=== PATIENT | male | born 1980 | race Caucasian/White ===

== ENCOUNTER 2018-08-15 09:56 | Emergency (ER) | payer OTHER ==
[~2018-08-15] VITALS: Ht 170.2 cm; Wt 102.1 kg
[2018-08-15] MEDS ORDERED: LOSARTAN POTAS100 MG (10:06)
[2018-08-15] MEDS ORDERED: LIPITOR20 MG (10:06)
[2018-08-15] MEDS ORDERED: NORVASC5 MG (10:07)
== END 2018-08-15 16:05 | disposition home or self-care (01) ==
LOC: ER 09:56
DX: L03.115 Cellulitis of right lower limb (principal)

== ENCOUNTER 2020-08-07 12:50 | Emergency (ER) | payer OTHER ==
[~2020-08-07] VITALS: Ht 170.2 cm; Wt 102.1 kg
[~2020-08-07 12:50] MED LIST: LIPITOR20 MG; LOSARTAN POTAS100 MG; NORVASC5 MG
[2020-08-07] MEDS ORDERED: ELIQUIS2.5 MG (12:55)
[2020-08-07] MEDS ORDERED: NORFLEX100MG PO (18:09)
[2020-08-07] MEDS ORDERED: KETO10TA2 PO (18:09)
[2020-08-07] MEDS ORDERED: MEDROLPACK PO (18:12)
[2020-08-07] MEDS ORDERED: ACETAMINOPHEN650 M2 PO (18:12)
== END 2020-08-07 18:29 | disposition home or self-care (01) ==
LOC: ER 12:50
DX: M62.838 Other muscle spasm (principal); M54.2 Cervicalgia

== ENCOUNTER 2022-03-26 10:29 | Emergency (ER) | payer OTHER ==
[~2022-03-26] VITALS: Ht 170.2 cm; Wt 108.9 kg
[~2022-03-26 10:29] MED LIST changes: +ACETAMINOPHEN650 M2 PO; +ELIQUIS2.5 MG; +KETO10TA2 PO; +MEDROLPACK PO; +NORFLEX100MG PO
== END 2022-03-26 11:37 | disposition home or self-care (01) ==
LOC: ER 10:29
DX: R07.81 Pleurodynia (principal)

== ENCOUNTER 2025-01-10 12:29 | Outpatient (CLI) | payer OTHER | END 2025-01-10 12:32 | disposition home or self-care (01) | LOC: RAD 12:29 | PROVIDERS: ATTEND Physical Medicine & Rehabilitation | DX: M25.511 Pain in right shoulder (principal) ==

== ENCOUNTER 2025-01-11 09:24 | Outpatient (CLI) | payer OTHER | END 2025-01-11 09:37 | disposition home or self-care (01) | LOC: RAD 09:24 | PROVIDERS: ATTEND Physical Medicine & Rehabilitation | DX: M25.512 Pain in left shoulder (principal) ==